=== PATIENT | female | born 1935 | race Asian ===

== ENCOUNTER 2017-02-12 17:26 | Inpatient (IN) | payer MEDICARE, OTHER ==
[~2017-02-12] VITALS: Ht 149.9 cm; Wt 64.8 kg
[~2017-02-12 17:26] MED LIST: ACET-2895 PO; ASPI-556 PO; BRIM155OS OU; CALC-1085 PO; METO-391 PO; MULT-950 PO; OMEP10 PO; SIMV40TA5 PO; TIOT185 IH
[2017-02-12] MEDS ORDERED: METF500T4 PO (17:30)
[2017-02-12] MEDS ORDERED: CLOP75 PO (17:30)
[2017-02-12 19:29] LABS: HEMATOCRIT 47.3 % (36-46); HEMOGLOBIN 15.7 g/dL (12.0-16.0); MEAN CORPUSCULAR HEMOGLOBIN 30.8 pg (26.0-34.0); MEAN CORPUSCULAR HGB CONC 33.3 G/dL (31.0-37.0); MEAN CORPUSCULAR VOLUME 92 fL (80-100); PLATELET COUNT (AUTO) 158 K/uL (150-450); RED BLOOD CELL COUNT(AUTO) 5.12 MIL/uL (4.00-5.20); RED CELL DISTRIBUTION WIDTH 15.7 % (11.5-14.5)
[2017-02-12 19:30] LABS: WHITE BLOOD COUNT (AUTO) 16.1 K/uL (4.5-11.0)
[2017-02-12 19:32] LABS: PROTHROMBIN TIME 10.7 SEC (9.4-11.6)
[2017-02-12 19:37] LABS: ALANINE AMINOTRANSFERASE 21 U/L (12-78); ALBUMIN 2.7 g/dL (3.4-5.0); ANION GAP 8 mmol/L (8-16); ASPARTATE AMINOTRANSFERASE 19 U/L (15-37); BILIRUBIN,TOTAL 0.3 mg/dL (0.1-1.0); CALCIUM, TOTAL 10.2 mg/dL (8.8-10.5); CARBON DIOXIDE 29 mmol/L (22-29); CHLORIDE 101 mmol/L (98-107); CREATINE KINASE, TOTAL 33 U/L (26-192); CREATININE 1.55 mg/dL (0.60-1.30); GLOMERULAR FILTR. RATE CALC 32 mL/min (>60); POTASSIUM 4.3 mmol/L (3.5-5.1); SODIUM SERUM 138 mmol/L (136-145); TOTAL PROTEIN, SERUM 7.3 g/dL (6.4-8.2); UREA NITROGEN, BLOOD 19 mg/dL (7-18)
[2017-02-12 19:38] LABS: AMMONIA 16 umol/L (11-32)
[2017-02-12 19:39] LABS: TROPONIN I < 0.02 ng/mL (0.00-0.05)
[2017-02-12 19:43] LABS: BAND NEUTROPHILS % (MANUAL) 12 % (1-5); EOSINOPHILS % (MANUAL) 4 % (1-6); LYMPHOCYTES % (MANUAL) 7 % (22-44); TOTAL CELLS COUNTED 100
[2017-02-12 19:44] LABS: RBC MORPHOLOGY COMMENT NORMAL RBC MORPH
[2017-02-12 19:50] LABS: APPEARANCE,URINE CLEAR (CLEAR); GLUCOSE, URINE (UA) NEGATIVE (NEGATIVE); KETONES,URINE 15 mg/dL (NEGATIVE); LEUKOCYTE ESTERASE ,URINE NEGATIVE (NEGATIVE); OCCULT BLOOD,URINE TRACE (NEGATIVE); PROTEIN,URINE SEE CONFIRM (NEGATIVE)
[2017-02-12 19:52] LABS: B-TYPE NATRIURETIC PEPTIDE 122 pg/mL (0-100)
[2017-02-12 19:52] LABS: ADD UA MICROSCOPIC YES
[2017-02-12] MEDS ORDERED: OMEP20 PO (19:57)
[2017-02-12] MEDS ORDERED: ACETAMINOPHEN 325 MG TABLET PO PRN (20:00)
[2017-02-12] MEDS ORDERED: 0.9% SODIUM CHLORIDE 10 ML SYRINGE IVP PRN (20:00)
[2017-02-12] MEDS ORDERED: SODIUM CHLORIDE 0.9% 1,000 ML IV ONE (20:00)
[2017-02-12] MEDS ORDERED: ASPIRIN 325 MG EC TABLET PO ONE (20:00)
[2017-02-12] MEDS ORDERED: ONDANSETRON HCL 4 MG/2 ML VIAL IVP PRN (20:00)
[2017-02-12 20:03] LABS: RBC,URINE 0-2 /HPF (0-2); SQUAMOUS EPITHELIAL CELL,UR Few /LPF (None Seen); SULFOSALICYLIC ACID,URINE 1+ (Negative); WBC,URINE 0-2 /HPF (0-5)
[2017-02-12] MEDS ORDERED: ZOLPIDEM TARTRATE 5 MG TABLET PO ONE (21:00)
[2017-02-12 21:30] VITALS: BP 130/72
[2017-02-12] MEDS ORDERED: PNEUMOCOCCAL VACCINE POLYVALENT 0.5 ML VIAL [PPSV23] IM ONE (23:15)
[2017-02-12 23:30] VITALS: BP 91/47
[2017-02-13] VITALS (7 sets, daily range): BP systolic 96–134; BP diastolic 50–70
[2017-02-13] MEDS ORDERED: GABA-529 PO (07:53)
[2017-02-13] MEDS ORDERED: DIVA125T PO ×2 (07:53)
[2017-02-13] MEDS ORDERED: DONE10TA8 PO (07:53)
[2017-02-13] MEDS ORDERED: MEMA10TA11 PO (07:53)
[2017-02-13] MEDS ORDERED: CALC-1038 PO (07:53)
[2017-02-13] MEDS ORDERED: ONDANSETRON HCL 4 MG/2 ML VIAL IVP PRN (08:45)
[2017-02-13] MEDS ORDERED: IPRATROPIUM BROMIDE 0.5 MG/2.5 ML NEB SOLUTION NEB PRN (08:45)
[2017-02-13] MEDS ORDERED: ALBUTEROL SULFATE 2.5 MG/0.5 ML NEB SOLUTION NEB PRN (08:45)
[2017-02-13] MEDS ORDERED: HYDROCODONE/ACETAMINOPHEN 5-325 MG TABLET PO PRN (08:45)
[2017-02-13] MEDS ORDERED: ZOLPIDEM TARTRATE 5 MG TABLET PO PRN (08:45)
[2017-02-13] MEDS ORDERED: ACETAMINOPHEN 325 MG TABLET PO PRN ×2 (08:45)
[2017-02-13] MEDS ORDERED: HEPARIN SODIUM,PORCINE 5,000 UNITS/ML VIAL SQ SCH (08:45)
[2017-02-13] MEDS ORDERED: 0.9% SODIUM CHLORIDE 10 ML SYRINGE IVP PRN (08:45)
[2017-02-13] MEDS ORDERED: CefTRIAXone 1 GM/DEXTROSE 50 ML IV SCH (09:00)
[2017-02-13] MEDS ORDERED: DEXTROSE 50%-WATER 25 GM/50 ML SYRINGE IVP PRN (09:00)
[2017-02-13] MEDS ORDERED: INSULIN ASPART 100 UNITS/ML SQ PRN (09:00)
[2017-02-13] MEDS ORDERED: SODIUM CHLORIDE 0.9% 100 ML ONE (09:48)
[2017-02-13] MEDS: DONEPEZIL HCL 10 MG TABLET PO SCH (10:02)
[2017-02-13] MEDS: METOPROLOL SUCCINATE 50 MG ER TABLET PO SCH (10:02)
[2017-02-13] MEDS: DOCUSATE SODIUM 250 MG CAPSULE PO SCH ×3 (10:02→20:53)
[2017-02-13] MEDS: CALCIUM OYSTER SHELL 500 MG TABLET PO SCH (10:03)
[2017-02-13] MEDS: MULTIVITAMINS, THERAPEUTIC TABLET PO SCH (10:03)
[2017-02-13] MEDS: DIVALPROEX SODIUM 125 MG DR TABLET PO SCH ×3 (10:03→20:52)
[2017-02-13] MEDS: PANTOPRAZOLE SODIUM 40 MG DR TABLET PO SCH (10:03)
[2017-02-13] MEDS: TIOTROPIUM BROMIDE 18 MCG/INH HANDIHALER [5] IH SCH (10:04)
[2017-02-13] MEDS: MetFORMIN HCL 500 MG TABLET PO SCH (18:09)
[2017-02-13] MEDS: HEPARIN SODIUM,PORCINE 5,000 UNITS/ML VIAL SQ SCH (20:53)
[2017-02-13] MEDS ORDERED: ATORVASTATIN CALCIUM 20 MG TABLET PO SCH (21:00)
[2017-02-13] MEDS ORDERED: DIVALPROEX SODIUM 125 MG DR TABLET PO SCH (21:00)
[2017-02-14 04:02] VITALS: BP 123/61
[2017-02-14] MEDS: PANTOPRAZOLE SODIUM 40 MG DR TABLET PO SCH (06:41)
[2017-02-14 07:03] LABS: BASOPHILS % (AUTO) 0.2 % (0.0-2.0); EOSINOPHILS % (AUTO) 8.4 % (1.0-6.0); HEMATOCRIT 41.9 % (36-46); LYMPHOCYTES # (AUTO) 1.9 K/uL (1.0-4.8); LYMPHOCYTES % (AUTO) 22.7 % (22.0-44.0); MEAN CORPUSCULAR HGB CONC 33.3 G/dL (31.0-37.0); MEAN CORPUSCULAR VOLUME 93 fL (80-100); MONOCYTES # (AUTO) 0.7 K/uL (0.1-1.0); MONOCYTES % (AUTO) 9.1 % (2.0-9.0); NEUTROPHILS # (AUTO) 4.9 K/uL (1.8-7.7); NEUTROPHILS % (AUTO) 59.6 % (40.0-70.0); PLATELET COUNT (AUTO) 181 K/uL (150-450); RED BLOOD CELL COUNT(AUTO) 4.51 MIL/uL (4.00-5.20); RED CELL DISTRIBUTION WIDTH 15.5 % (11.5-14.5); WHITE BLOOD COUNT (AUTO) 8.2 K/uL (4.5-11.0)
[2017-02-14 07:12] VITALS: BP 104/62
[2017-02-14 07:15] LABS: CALCIUM, TOTAL 9.4 mg/dL (8.8-10.5); CHOL/HDL RATIO 1.9 (3.9-5.7); CREATININE 1.28 mg/dL (0.60-1.30); MAGNESIUM 2.4 mg/dL (1.80-2.40); PHOSPHORUS 2.3 mg/dL (2.5-4.9); POTASSIUM 3.2 mmol/L (3.5-5.1); THYROID STIMULATING HORMONE 2.29 uIU/mL (0.36-3.74)
[2017-02-14 07:35] LABS: HEMOGLOBIN A1C 5.6 % (4.5-6.2)
[2017-02-14] MEDS ORDERED: CLOPIDOGREL BISULFATE 75 MG TABLET PO SCH (08:30)
[2017-02-14] MEDS ORDERED: MethylPREDNISolone SOD SUCC 125 MG/2 ML VIAL IVP ONE (08:45)
[2017-02-14] MEDS ORDERED: FEXOFENADINE HCL 60 MG TABLET PO SCH (09:00)
[2017-02-14] MEDS ORDERED: POTASSIUM CHLORIDE 20 MEQ ER TABLET PO ONE (09:00)
[2017-02-14] MEDS ORDERED: POTASSIUM PHOS/SODIUM PHOS MIXTURE 1 POWDER PACKET PO ONE (09:00)
[2017-02-14] MEDS ORDERED: SODIUM CHLORIDE 0.9% 100 ML ONE (09:08)
[2017-02-14] MEDS: POTASSIUM CHL 10 MEQ/WATER 50 ML IV SCH ×2 (09:10→12:11)
[2017-02-14] MEDS: DIVALPROEX SODIUM 125 MG DR TABLET PO SCH (09:10)
[2017-02-14] MEDS: MetFORMIN HCL 500 MG TABLET PO SCH (09:11)
[2017-02-14] MEDS: HEPARIN SODIUM,PORCINE 5,000 UNITS/ML VIAL SQ SCH (09:11)
[2017-02-14] MEDS: METOPROLOL SUCCINATE 50 MG ER TABLET PO SCH (09:11)
[2017-02-14] MEDS: MULTIVITAMINS, THERAPEUTIC TABLET PO SCH (09:11)
[2017-02-14] MEDS: DOCUSATE SODIUM 250 MG CAPSULE PO SCH (09:11)
[2017-02-14] MEDS: CALCIUM OYSTER SHELL 500 MG TABLET PO SCH (09:11)
[2017-02-14] MEDS: DONEPEZIL HCL 10 MG TABLET PO SCH (09:11)
[2017-02-14] MEDS: TIOTROPIUM BROMIDE 18 MCG/INH HANDIHALER [5] IH SCH (09:12)
[2017-02-14 11:45] VITALS: BP 134/64
[2017-02-14 12:13] LABS: GLUCOSE,POINT OF CARE 131 MG/DL (70-110)
[2017-02-14 12:13] LABS: GLUCOSE,POINT OF CARE 90 MG/DL (70-110)
[2017-02-14 12:13] LABS: GLUCOSE,POINT OF CARE 105 MG/DL (70-110)
[2017-02-14 13:31] LABS: PHOSPHORUS 2.4 mg/dL (2.5-4.9); POTASSIUM 4.9 mmol/L (3.5-5.1)
[2017-02-14] MEDS ORDERED: LEVOFLOXACIN 500 MG TABLET PO ONE (14:30)
[2017-02-14] MEDS ORDERED: LEVO250 PO (14:43)
[2017-02-14] MEDS ORDERED: ATOR20TA86 PO (14:43)
[2017-02-14] MEDS ORDERED: FEXO-58 PO (14:45)
[2017-02-14 15:18] VITALS: BP 122/62
[2017-02-14] MEDS ORDERED: DIVALPROEX SODIUM 125 MG DR TABLET PO SCH (16:00)
[2017-02-14 22:17] LABS: GLUCOSE,POINT OF CARE 86 MG/DL (70-110)
[2017-02-14 22:23] LABS: GLUCOSE COMMENT 1 Received Meds; GLUCOSE,POINT OF CARE 181 MG/DL (70-110)
[2017-02-14 22:23] LABS: GLUCOSE,POINT OF CARE 141 MG/DL (70-110)
== END 2017-02-14 15:30 | disposition home or self-care (01) | DRG 682 ==
LOC: EMS 17:27 → 5S 20:00
PROVIDERS: ADMIT Internal Medicine; ATTEND Internal Medicine
DX: N17.9 Acute kidney failure, unspecified (principal); J96.20 Acute and chronic respiratory failure, unspecified whether with hypoxia or hypercapnia; J84.9 Interstitial pulmonary disease, unspecified; I13.0 Hypertensive heart and chronic kidney disease with heart failure and stage 1 through stage 4 chronic kidney disease, or unspecified chronic kidney disease; J98.11 Atelectasis; G45.9 Transient cerebral ischemic attack, unspecified; R53.1 Weakness; E11.22 Type 2 diabetes mellitus with diabetic chronic kidney disease; I50.9 Heart failure, unspecified; F03.90 Unspecified dementia, unspecified severity, without behavioral disturbance, psychotic disturbance, mood disturbance, and anxiety; N18.3 Chronic kidney disease, stage 3 (moderate); D72.829 Elevated white blood cell count, unspecified; E78.5 Hyperlipidemia, unspecified; I25.10 Atherosclerotic heart disease of native coronary artery without angina pectoris; Z86.73 Personal history of transient ischemic attack (TIA), and cerebral infarction without residual deficits; J44.9 Chronic obstructive pulmonary disease, unspecified; K21.9 Gastro-esophageal reflux disease without esophagitis; M81.0 Age-related osteoporosis without current pathological fracture; Z79.84 Long term (current) use of oral hypoglycemic drugs; Z79.899 Other long term (current) drug therapy; Z87.891 Personal history of nicotine dependence; Z88.5 Allergy status to narcotic agent
CPT/HCPCS: 70450; 70544; 70551; 71250; 82948; 82962; 83036; 83735; 84100; 84132; 84145; 84443; 90471; 93005; 93306; 96360; 97162; 97165; 97530; 99285; J0696; J1644; J2930; J3480; J7030; J7050

== ENCOUNTER 2017-05-03 22:14 | Inpatient (IN) | payer MEDICARE, OTHER ==
[~2017-05-03] VITALS: Ht 160 cm; Wt 53.5 kg
[~2017-05-03 22:14] MED LIST changes: -ASPI-556 PO; +ATOR20TA86 PO; -BRIM155OS OU; +CALC-1038 PO; -CALC-1085 PO; +CLOP75 PO; +DIVA125T PO; +DONE10TA8 PO; +FEXO-58 PO; +LEVO250 PO; +MEMA10TA11 PO; +METF500T4 PO; -OMEP10 PO; -SIMV40TA5 PO
[2017-05-03] MEDS ORDERED: [UNRECOGNIZED DRUG - CODE] PO (22:28)
[2017-05-03] MEDS ORDERED: ROSU10 PO (22:28)
[2017-05-03] MEDS ORDERED: SENN8.6T90 PO (22:28)
[2017-05-03] MEDS ORDERED: METO-558 PO (22:28)
[2017-05-03] MEDS ORDERED: QUET25TA PO (22:28)
[2017-05-03 23:21] LABS: BASOPHILS % (AUTO) 0.9 % (0.0-2.0); EOSINOPHILS % (AUTO) 3.9 % (1.0-6.0); HEMOGLOBIN 14.9 g/dL (12.0-16.0); LYMPHOCYTES # (AUTO) 2.2 K/uL (1.0-4.8); LYMPHOCYTES % (AUTO) 24.8 % (22.0-44.0); MEAN CORPUSCULAR HEMOGLOBIN 30.8 pg (26.0-34.0); MEAN CORPUSCULAR HGB CONC 33.2 G/dL (31.0-37.0); MEAN CORPUSCULAR VOLUME 93 fL (80-100); MONOCYTES # (AUTO) 0.8 K/uL (0.1-1.0); MONOCYTES % (AUTO) 9.4 % (2.0-9.0); NEUTROPHILS # (AUTO) 5.5 K/uL (1.8-7.7); PLATELET COUNT (AUTO) 314 K/uL (150-450); RED BLOOD CELL COUNT(AUTO) 4.85 MIL/uL (4.00-5.20); RED CELL DISTRIBUTION WIDTH 14.3 % (11.5-14.5)
[2017-05-03 23:33] LABS: ANION GAP 8 mmol/L (8-16); CALCIUM, TOTAL 9.7 mg/dL (8.8-10.5); CARBON DIOXIDE 28 mmol/L (22-29); CHLORIDE 107 mmol/L (98-107); CREATININE 0.83 mg/dL (0.60-1.30); GLOMERULAR FILTR. RATE CALC > 60 mL/min (>60); GLUCOSE,RANDOM 105 mg/dL (70-110); POTASSIUM 4.3 mmol/L (3.5-5.1); SODIUM SERUM 143 mmol/L (136-145); UREA NITROGEN, BLOOD 19 mg/dL (7-18)
[2017-05-03 23:39] LABS: ALANINE AMINOTRANSFERASE 13 U/L (12-78); ALBUMIN 2.6 g/dL (3.4-5.0); ALKALINE PHOSPHATASE 83 U/L (46-116); ASPARTATE AMINOTRANSFERASE 16 U/L (15-37); BILIRUBIN,TOTAL 0.2 mg/dL (0.1-1.0); CREATINE KINASE, TOTAL 26 U/L (26-192); VALPROIC ACID 30 mcg/mL (50-100)
[2017-05-03 23:41] LABS: AMMONIA 26 umol/L (11-32)
[2017-05-03 23:44] LABS: TROPONIN I < 0.02 ng/mL (0.00-0.05)
[2017-05-03 23:56] LABS: INR 0.9 (0.9-1.1); PROTHROMBIN TIME 9.7 SEC (9.4-11.6)
[2017-05-04 04:52] LABS: B-TYPE NATRIURETIC PEPTIDE 31 pg/mL (0-100)
[2017-05-04] MEDS ORDERED: CefTRIAXone SODIUM 1 GM in DEXTROSE 5%-WATER 10 ML IV ONE (05:00)
[2017-05-04 05:41] LABS: APPEARANCE,URINE TURBID (CLEAR); BILIRUBIN,URINE NEGATIVE (NEGATIVE); GLUCOSE, URINE (UA) NEGATIVE (NEGATIVE); KETONES,URINE NEGATIVE (NEGATIVE); LEUKOCYTE ESTERASE ,URINE LARGE (NEGATIVE); NITRATE,URINE NEGATIVE (NEGATIVE); OCCULT BLOOD,URINE SMALL (NEGATIVE); PH,URINE 6.5 (5.0-8.0); PROTEIN,URINE NEGATIVE (NEGATIVE); UROBILINOGEN,URINE 0.2 mg/dL (<=1.0)
[2017-05-04 05:42] LABS: AMPHET/METH SCREEN,URINE NEGATIVE (NEGATIVE); BARBITURATE SCREEN, URINE NEGATIVE (NEGATIVE); BENZODIAZEPINES SCREEN,URINE POSITIVE (NEGATIVE); CANNABINOID SCREEN,URINE NEGATIVE (NEGATIVE); COCAINE SCREEN,URINE NEGATIVE (NEGATIVE); METHADONE SCREEN, URINE NEGATIVE (NEGATIVE); OPIATE SCREEN,URINE NEGATIVE (NEGATIVE)
[2017-05-04 05:46] LABS: PHENCYCLIDINE SCREEN,URINE NEGATIVE (NEGATIVE)
[2017-05-04 06:19] LABS: WBC,URINE 51-100 /HPF (0-5)
[2017-05-04 06:20] LABS: BACTERIA,URINE Many /HPF (None Seen); SQUAMOUS EPITHELIAL CELL,UR Few /LPF (None Seen)
[2017-05-04] MEDS ORDERED: ONDANSETRON HCL 4 MG/2 ML VIAL IVP PRN ×2 (07:15→12:00)
[2017-05-04] MEDS ORDERED: ACETAMINOPHEN 325 MG TABLET PO PRN ×2 (07:15→12:00)
[2017-05-04] MEDS ORDERED: 0.9% SODIUM CHLORIDE 10 ML SYRINGE IVP PRN ×2 (07:15→12:00)
[2017-05-04 08:38] VITALS: BP 123/66
[2017-05-04 11:17] LABS: INR 0.9 (0.9-1.1); PROTHROMBIN TIME 9.9 SEC (9.4-11.6)
[2017-05-04 11:30] LABS: ANION GAP 6 mmol/L (8-16); CALCIUM, TOTAL 9.7 mg/dL (8.8-10.5); CARBON DIOXIDE 30 mmol/L (22-29); CHLORIDE 107 mmol/L (98-107); CHOL/HDL RATIO 5.3 (3.9-5.7); CHOLESTEROL 251 mg/dL (131-200); CREATININE 0.83 mg/dL (0.60-1.30); GLOMERULAR FILTR. RATE CALC > 60 mL/min (>60); GLUCOSE,RANDOM 89 mg/dL (70-110); HDL CHOLESTEROL 47 mg/dL (40-60); LDL CHOL (CALC.) 165 mg/dL (0-130); POTASSIUM 4.2 mmol/L (3.5-5.1); SODIUM SERUM 143 mmol/L (136-145); THYROID STIMULATING HORMONE 2.38 uIU/mL (0.36-3.74); TRIGLYCERIDES 194 mg/dL (15-150); UREA NITROGEN, BLOOD 17 mg/dL (7-18)
[2017-05-04 11:39] LABS: HEMOGLOBIN A1C 5.6 % (4.5-6.2)
[2017-05-04 11:44] VITALS: BP 110/56
[2017-05-04] MEDS ORDERED: IPRATROPIUM BROMIDE 0.5 MG/2.5 ML NEB SOLUTION NEB PRN (12:00)
[2017-05-04] MEDS ORDERED: ALBUTEROL SULFATE 2.5 MG/0.5 ML NEB SOLUTION NEB PRN (12:00)
[2017-05-04] MEDS: HEPARIN SODIUM,PORCINE 5,000 UNITS/ML VIAL SQ SCH ×2 (13:30→20:22)
[2017-05-04] MEDS: TIOTROPIUM BROMIDE 18 MCG/INH HANDIHALER [5] IH SCH (13:30)
[2017-05-04 15:17] VITALS: BP 105/45
[2017-05-04] MEDS: DIVALPROEX SODIUM 125 MG DR TABLET PO SCH ×2 (16:19→20:22)
[2017-05-04] MEDS: DOCUSATE SODIUM 250 MG CAPSULE PO SCH ×2 (16:19→20:21)
[2017-05-04] MEDS: QUEtiapine FUMARATE 25 MG TABLET PO SCH ×2 (16:19→20:22)
[2017-05-04 19:27] VITALS: BP 132/77
[2017-05-04] MEDS: ROSUVASTATIN CALCIUM 10 MG TABLET PO SCH (20:22)
[2017-05-04] MEDS: CLOPIDOGREL BISULFATE 75 MG TABLET PO SCH (20:22)
[2017-05-05] VITALS: BP 120/68
[2017-05-05 04:00] VITALS: BP 116/56
[2017-05-05] MEDS: PANTOPRAZOLE SODIUM 40 MG DR TABLET PO SCH (05:31)
[2017-05-05] MEDS: CefTRIAXone SODIUM 1 GM in DEXTROSE 5%-WATER 10 ML IV SCH (05:31)
[2017-05-05] MEDS: DOCUSATE SODIUM 250 MG CAPSULE PO SCH ×3 (11:01→20:32)
[2017-05-05] MEDS: MULTIVITAMINS WITH MINERALS, THERAPEUTIC TABLET PO SCH (11:02)
[2017-05-05] MEDS: METOPROLOL SUCCINATE 50 MG ER TABLET PO SCH (11:02)
[2017-05-05] MEDS: CALCIUM CIT/VITAMIN D3 200 MG-250 UNITS TABLET PO SCH (11:03)
[2017-05-05] MEDS: QUEtiapine FUMARATE 25 MG TABLET PO SCH ×3 (11:03→20:32)
[2017-05-05] MEDS: SENNA 187 MG TABLET PO SCH (11:03)
[2017-05-05] MEDS: DIVALPROEX SODIUM 125 MG DR TABLET PO SCH ×3 (11:04→20:32)
[2017-05-05] MEDS: TIOTROPIUM BROMIDE 18 MCG/INH HANDIHALER [5] IH SCH (11:04)
[2017-05-05] MEDS: HEPARIN SODIUM,PORCINE 5,000 UNITS/ML VIAL SQ SCH ×2 (11:05→20:33)
[2017-05-05 11:58] LABS: BASOPHILS % (AUTO) 1.3 % (0.0-2.0); EOSINOPHILS % (AUTO) 6.5 % (1.0-6.0); HEMATOCRIT 42.2 % (36-46); HEMOGLOBIN 14.2 g/dL (12.0-16.0); LYMPHOCYTES # (AUTO) 1.6 K/uL (1.0-4.8); LYMPHOCYTES % (AUTO) 23.6 % (22.0-44.0); MEAN CORPUSCULAR HEMOGLOBIN 30.9 pg (26.0-34.0); MEAN CORPUSCULAR HGB CONC 33.5 G/dL (31.0-37.0); MEAN CORPUSCULAR VOLUME 92 fL (80-100); MONOCYTES # (AUTO) 0.7 K/uL (0.1-1.0); NEUTROPHILS # (AUTO) 3.9 K/uL (1.8-7.7); NEUTROPHILS % (AUTO) 58.6 % (40.0-70.0); PLATELET COUNT (AUTO) 312 K/uL (150-450); RED BLOOD CELL COUNT(AUTO) 4.58 MIL/uL (4.00-5.20); RED CELL DISTRIBUTION WIDTH 14.4 % (11.5-14.5)
[2017-05-05 18:03] VITALS: BP 123/54
[2017-05-05] MEDS: ROSUVASTATIN CALCIUM 10 MG TABLET PO SCH (20:32)
[2017-05-05] MEDS: CLOPIDOGREL BISULFATE 75 MG TABLET PO SCH (20:32)
[2017-05-05 20:48] VITALS: BP 113/53
[2017-05-06] VITALS (7 sets, daily range): BP systolic 97–132; BP diastolic 55–93
[2017-05-06] MEDS: CefTRIAXone SODIUM 1 GM in DEXTROSE 5%-WATER 10 ML IV SCH (05:37)
[2017-05-06] MEDS: PANTOPRAZOLE SODIUM 40 MG DR TABLET PO SCH (05:37)
[2017-05-06 07:42] LABS: ALBUMIN 2.5 g/dL (3.4-5.0); BILIRUBIN,TOTAL 0.2 mg/dL (0.1-1.0); CALCIUM, TOTAL 9.4 mg/dL (8.8-10.5); CREATININE 0.95 mg/dL (0.60-1.30); POTASSIUM 3.7 mmol/L (3.5-5.1); TOTAL PROTEIN, SERUM 6.9 g/dL (6.4-8.2)
[2017-05-06] MEDS: TIOTROPIUM BROMIDE 18 MCG/INH HANDIHALER [5] IH SCH (09:09)
[2017-05-06] MEDS: HEPARIN SODIUM,PORCINE 5,000 UNITS/ML VIAL SQ SCH ×2 (09:09→21:09)
[2017-05-06] MEDS: DOCUSATE SODIUM 250 MG CAPSULE PO SCH ×3 (09:10→21:07)
[2017-05-06] MEDS: MULTIVITAMINS WITH MINERALS, THERAPEUTIC TABLET PO SCH (09:10)
[2017-05-06] MEDS: DIVALPROEX SODIUM 125 MG DR TABLET PO SCH ×3 (09:10→21:08)
[2017-05-06] MEDS: SENNA 187 MG TABLET PO SCH (09:10)
[2017-05-06] MEDS: CALCIUM CIT/VITAMIN D3 200 MG-250 UNITS TABLET PO SCH (09:11)
[2017-05-06] MEDS: QUEtiapine FUMARATE 25 MG TABLET PO SCH ×3 (09:11→21:08)
[2017-05-06] MEDS: METOPROLOL SUCCINATE 50 MG ER TABLET PO SCH (09:13)
[2017-05-06] MEDS: ROSUVASTATIN CALCIUM 10 MG TABLET PO SCH (21:07)
[2017-05-06] MEDS: CLOPIDOGREL BISULFATE 75 MG TABLET PO SCH (21:08)
[2017-05-07 00:30] VITALS: BP 113/65
[2017-05-07 04:43] VITALS: BP 93/63
[2017-05-07] MEDS: CefTRIAXone SODIUM 1 GM in DEXTROSE 5%-WATER 10 ML IV SCH (05:41)
[2017-05-07] MEDS: PANTOPRAZOLE SODIUM 40 MG DR TABLET PO SCH (05:41)
[2017-05-07 06:22] VITALS: BP 101/56
[2017-05-07 07:03] LABS: ALANINE AMINOTRANSFERASE 9 U/L (12-78); ALBUMIN 2.5 g/dL (3.4-5.0); ALKALINE PHOSPHATASE 72 U/L (46-116); ANION GAP 7 mmol/L (8-16); ASPARTATE AMINOTRANSFERASE 16 U/L (15-37); BILIRUBIN,TOTAL 0.2 mg/dL (0.1-1.0); CALCIUM, TOTAL 9.3 mg/dL (8.8-10.5); CARBON DIOXIDE 28 mmol/L (22-29); CHLORIDE 106 mmol/L (98-107); CREATININE 0.85 mg/dL (0.60-1.30); GLOMERULAR FILTR. RATE CALC > 60 mL/min (>60); GLUCOSE,RANDOM 88 mg/dL (70-110); POTASSIUM 3.9 mmol/L (3.5-5.1); SODIUM SERUM 141 mmol/L (136-145); TOTAL PROTEIN, SERUM 6.7 g/dL (6.4-8.2); UREA NITROGEN, BLOOD 24 mg/dL (7-18)
[2017-05-07 07:45] VITALS: BP 125/56
[2017-05-07] MEDS: MULTIVITAMINS WITH MINERALS, THERAPEUTIC TABLET PO SCH (08:25)
[2017-05-07] MEDS: TIOTROPIUM BROMIDE 18 MCG/INH HANDIHALER [5] IH SCH (08:25)
[2017-05-07] MEDS: DOCUSATE SODIUM 250 MG CAPSULE PO SCH (08:25)
[2017-05-07] MEDS: SENNA 187 MG TABLET PO SCH (08:25)
[2017-05-07] MEDS: HEPARIN SODIUM,PORCINE 5,000 UNITS/ML VIAL SQ SCH (08:25)
[2017-05-07] MEDS: CALCIUM CIT/VITAMIN D3 200 MG-250 UNITS TABLET PO SCH (08:25)
[2017-05-07] MEDS: METOPROLOL SUCCINATE 50 MG ER TABLET PO SCH (08:26)
[2017-05-07] MEDS: QUEtiapine FUMARATE 25 MG TABLET PO SCH (08:26)
[2017-05-07] MEDS: DIVALPROEX SODIUM 125 MG DR TABLET PO SCH (08:28)
[2017-05-07] MEDS ORDERED: PANT40TA25 PO (09:21)
[2017-05-07] MEDS ORDERED: TIOT185 IH (09:21)
[2017-05-07] MEDS ORDERED: AMOX500T2 PO (09:23)
[2017-05-07 11:33] VITALS: BP 121/78
[2017-05-08] MEDS ORDERED: AMOXICILLIN TRIHYDRATE 500 MG CAPSULE PO SCH (09:00)
== END 2017-05-07 13:45 | disposition home or self-care (01) | DRG 689 ==
LOC: EMS 22:17 → 5S 05-04 04:41
PROVIDERS: ADMIT Internal Medicine; ATTEND Internal Medicine
DX: N39.0 Urinary tract infection, site not specified (principal); G92 Toxic encephalopathy; F03.91 Unspecified dementia, unspecified severity, with behavioral disturbance; E11.22 Type 2 diabetes mellitus with diabetic chronic kidney disease; J98.11 Atelectasis; G93.89 Other specified disorders of brain; J44.9 Chronic obstructive pulmonary disease, unspecified; N18.3 Chronic kidney disease, stage 3 (moderate); F17.200 Nicotine dependence, unspecified, uncomplicated; I12.9 Hypertensive chronic kidney disease with stage 1 through stage 4 chronic kidney disease, or unspecified chronic kidney disease; T43.595A Adverse effect of other antipsychotics and neuroleptics, initial encounter; K21.9 Gastro-esophageal reflux disease without esophagitis; E78.5 Hyperlipidemia, unspecified; B95.1 Streptococcus, group B, as the cause of diseases classified elsewhere; I70.0 Atherosclerosis of aorta; F41.9 Anxiety disorder, unspecified; E78.00 Pure hypercholesterolemia, unspecified; Z86.73 Personal history of transient ischemic attack (TIA), and cerebral infarction without residual deficits; Z88.4 Allergy status to anesthetic agent; Y92.89 Other specified places as the place of occurrence of the external cause; Z79.899 Other long term (current) drug therapy
CPT/HCPCS: 51702; 70450; 83036; 84145; 84443; 87086; 87147; 93005; 97162; 97165; 97530; J0696; J1644; J7060

== ENCOUNTER 2018-05-24 13:01 | Emergency (ER) | payer MEDICARE, OTHER ==
[~2018-05-24] VITALS: Ht 160 cm; Wt 59.1 kg
[~2018-05-24 13:01] MED LIST changes: -ACET-2895 PO; -ATOR20TA86 PO; -CALC-1038 PO; +CHOL50004 PO; -CLOP75 PO; +CLOP75TA3 PO; -DIVA125T PO; -DONE10TA8 PO; -FEXO-58 PO; +FLUPH2.5I IM; -LEVO250 PO; -METF500T4 PO; -METO-391 PO; +METO25XL PO; +MULT-1203 PO; -MULT-950 PO; +OLAN2.5T3 PO; +PANT40TA25 PO; +ROSU10TA22 PO; +SENN8.6T90 PO; -TIOT185 IH; +[UNRECOGNIZED DRUG - CODE] PO
[2018-05-24 15:03] VITALS: BP 154/71
== END 2018-05-24 15:34 | disposition home or self-care (01) ==
LOC: EMS 13:02
DX: T17.928A Food in respiratory tract, part unspecified causing other injury, initial encounter (principal); E11.9 Type 2 diabetes mellitus without complications; I10 Essential (primary) hypertension; E78.00 Pure hypercholesterolemia, unspecified; Z88.5 Allergy status to narcotic agent; Y92.89 Other specified places as the place of occurrence of the external cause

== ENCOUNTER 2021-07-03 07:39 | Inpatient (IN) | payer MEDICARE, OTHER ==
[2021-07-03] VITALS (23 sets, daily range): BP systolic 93–170; BP diastolic 37–97
[~2021-07-03] VITALS: Ht 162.6 cm; Wt 58.6 kg
[~2021-07-03 07:39] MED LIST changes: +CHOL500013 PO; -CHOL50004 PO; -CLOP75TA3 PO; +CLOP75TA60 PO; +PANT-31 PO; -PANT40TA25 PO; -ROSU10TA22 PO; +ROSU10TA72 PO
[2021-07-03] MEDS ORDERED: 0.9% SODIUM CHLORIDE 10 ML SYRINGE IVP PRN ×2 (07:45→11:00)
[2021-07-03] MEDS ORDERED: SODIUM CHLORIDE 0.9% 1,650 ML IV ONE (08:00)
[2021-07-03] MEDS: NOREPINEPHRINE 4 MG/D5%-WATER 250 ML IV PRN ×3 (08:00→17:11)
[2021-07-03 08:42] LABS: INR 1.1 (0.9-1.1); PROTHROMBIN TIME 11.8 SEC (9.4-11.6)
[2021-07-03 08:52] LABS: ANION GAP 26 mmol/L (8-16); CALCIUM, TOTAL 9.1 mg/dL (8.8-10.5); CARBON DIOXIDE 12 mmol/L (22-29); CHLORIDE 104 mmol/L (98-107); CREATININE 2.19 mg/dL (0.60-1.30); GLOMERULAR FILTR. RATE CALC 21 mL/min (>60); GLUCOSE,RANDOM 332 mg/dL (70-110); POTASSIUM 5.7 mmol/L (3.5-5.1); SODIUM SERUM 142 mmol/L (136-145); UREA NITROGEN, BLOOD 87 mg/dL (7-18)
[2021-07-03 08:52] LABS: APPEARANCE,URINE HAZY (CLEAR); BILIRUBIN,URINE NEGATIVE (NEGATIVE); GLUCOSE, URINE (UA) NEGATIVE (NEGATIVE); KETONES,URINE TRACE mg/dL (NEGATIVE); LEUKOCYTE ESTERASE ,URINE NEGATIVE (NEGATIVE); NITRATE,URINE NEGATIVE (NEGATIVE); OCCULT BLOOD,URINE NEGATIVE (NEGATIVE); PROTEIN,URINE TRACE mg/dL (NEGATIVE); SPECIFIC GRAVITIY, URINE 1.017 (1.003-1.030); UROBILINOGEN,URINE <=1.0 mg/dL (<=1.0)
[2021-07-03 08:53] LABS: B-TYPE NATRIURETIC PEPTIDE 33 pg/mL (0-100)
[2021-07-03 09:05] LABS: LACTIC ACID 16.5 mmol/L (0.4-2.0)
[2021-07-03 09:06] LABS: MEAN CORPUSCULAR HEMOGLOBIN 29.5 pg (26.0-34.0); MEAN CORPUSCULAR HGB CONC 28.8 G/dL (31.0-37.0); MEAN CORPUSCULAR VOLUME 103 fL (80-100); RED BLOOD CELL COUNT(AUTO) 1.75 MIL/uL (4.00-5.20); RED CELL DISTRIBUTION WIDTH 14.8 % (11.5-14.5)
[2021-07-03 09:09] LABS: HEMOGLOBIN 5.2 g/dL (12.0-16.0)
[2021-07-03 09:11] LABS: HEMATOCRIT 17.9 % (36-46)
[2021-07-03 09:15] LABS: ALANINE AMINOTRANSFERASE 63 U/L (12-78); ALBUMIN 1.7 g/dL (3.4-5.0); ALKALINE PHOSPHATASE 210 U/L (46-116); ASPARTATE AMINOTRANSFERASE 710 U/L (15-37); BILIRUBIN,TOTAL 0.2 mg/dL (0.1-1.0); CREATINE KINASE, TOTAL ONLY 597 U/L (26-192); TOTAL PROTEIN, SERUM 5.2 g/dL (6.4-8.2)
[2021-07-03 09:26] LABS: PLATELET COUNT (AUTO) 3 K/uL (150-450)
[2021-07-03 09:47] LABS: COVID AG,FIA SOURCE NASAL SWAB
[2021-07-03 10:10] LABS: SEGMENTED NEUTROPHILS % 62 % (40-70)
[2021-07-03 10:11] LABS: BAND NEUTROPHILS % (MANUAL) 4 % (0-5); BASOPHILS % (MANUAL) 1 % (0-2); EOSINOPHILS % (MANUAL) 1 % (1-6); LYMPHOCYTES % (MANUAL) 22 % (22-44); METAMYELOCYTES % 2 % (0-0); MONOCYTES % (MANUAL) 7 % (2-9); MYELOCYTES % 1 % (0-0)
[2021-07-03 10:12] LABS: PLATELET MORPHOLOGY COMMENT LARGE PLTS PRESENT; WBC MORPHOLOGY TOXIC GRANULATION
[2021-07-03] MEDS ORDERED: AZITHROMYCIN 500 MG/NS 250 ML IV ONE (10:15)
[2021-07-03] MEDS ORDERED: CefTRIAXone 1 GM/DEXTROSE 50 ML IV ONE (10:15)
[2021-07-03] MEDS ORDERED: PANTOPRAZOLE SODIUM 40 MG/VIAL IVP ONE (10:15)
[2021-07-03 10:18] LABS: INFLUENZA TYPE A NEGATIVE FOR TYPE A (NEGATIVE); INFLUENZA TYPE B NEGATIVE FOR TYPE B (NEGATIVE)
[2021-07-03] MEDS ORDERED: PANTOPRAZOLE SODIUM 80 MG in SODIUM CHLORIDE 0.9% 100 ML IV SCH (10:30)
[2021-07-03] MEDS ORDERED: PHENYLEPHRINE 200 MG/D5%-WATER 250 ML IV PRN (11:45)
[2021-07-03] MEDS ORDERED: SODIUM CHLORIDE 0.9% 500 ML IV ONE ×2 (11:55→12:56)
[2021-07-03 13:13] LABS: ABG BASE EXCESS -15.7 mmol/L (-2.0-3.0); ABG CARBOXYHEMOGLOBIN 1.1 % (0.0-1.5); ABG HCO3 12.7 mmol/L (22.0-26.0); ABG METHEMOGLOBIN 0.3 % (0.0-1.5); ABG OXYGEN CONTENT 7.1 mL/dL (15.0-23.0); ABG OXYHEMOGLOBIN 97.6 % (94.0-100.0); PO2, ARTERIAL BG 143.7 mmHg (71.0-79.0); SOURCE, BLOOD GAS ARTERIAL
[2021-07-03 13:14] LABS: HEMATOCRIT 17.5 % (36-46)
[2021-07-03 13:15] LABS: ABG PCO2 17 mmHg (35-45); ABG TOTAL HEMOGLOBIN 4.9 G/dL (12.0-18.0); O2 DEVICE,BLOOD GAS CANNULA (ROOM AIR); SITE, BLOOD GAS LFT BRACHIAL
[2021-07-03 13:25] LABS: MEAN CORPUSCULAR HEMOGLOBIN 29.3 pg (26.0-34.0); MEAN CORPUSCULAR HGB CONC 28.5 G/dL (31.0-37.0); MEAN CORPUSCULAR VOLUME 103 fL (80-100); RED BLOOD CELL COUNT(AUTO) 1.73 MIL/uL (4.00-5.20); RED CELL DISTRIBUTION WIDTH 14.6 % (11.5-14.5)
[2021-07-03 13:26] LABS: PLATELET COUNT (AUTO) 44 K/uL (150-450)
[2021-07-03] MEDS ORDERED: FUROSEMIDE 20 MG/2 ML VIAL IVP ONE ×2 (13:45→16:00)
[2021-07-03] MEDS ORDERED: OCTREOTIDE ACETATE 100 MCG/ML VIAL IVP ONE (14:00)
[2021-07-03] MEDS ORDERED: ZOLPIDEM TARTRATE 5 MG TABLET PO PRN (14:15)
[2021-07-03] MEDS ORDERED: ONDANSETRON HCL 4 MG/2 ML VIAL IVP PRN (14:15)
[2021-07-03] MEDS ORDERED: BISACODYL 10 MG RECTAL RECTAL SUPPOSITORY PR PRN (14:15)
[2021-07-03] MEDS ORDERED: OCTREOTIDE ACETATE 500 MCG in DEXTROSE 5%-WATER 97.5 ML IV SCH (14:15)
[2021-07-03] MEDS ORDERED: MAGNESIUM HYDROXIDE SUSPENSION 30 ML UDCUP PO PRN (14:15)
[2021-07-03] MEDS ORDERED: ACETAMINOPHEN 325 MG TABLET PO PRN (14:15)
[2021-07-03] MEDS: OCTREOTIDE ACETATE 500 MCG in DEXTROSE 5%-WATER 97.5 ML IV SCH ×2 (14:47→23:26)
[2021-07-03 19:08] LABS: HEMATOCRIT 37.4 % (36-46); HEMOGLOBIN 12.4 g/dL (12.0-16.0)
[2021-07-03] MEDS ORDERED: NOREPINEPHRINE 4 MG/D5%-WATER 250 ML IV PRN (20:45)
[2021-07-03] MEDS: DOCUSATE SODIUM 100 MG CAPSULE PO SCH (20:59)
[2021-07-03] MEDS: PANTOPRAZOLE SODIUM 80 MG in SODIUM CHLORIDE 0.9% 100 ML IV SCH (21:10)
[2021-07-03 21:31] LABS: GLUCOSE,POINT OF CARE 154 MG/DL (70-110)
[2021-07-03] MEDS ORDERED: NOREPINEPHRINE BITARTRATE 8 MG in DEXTROSE 5%-WATER 242 ML IV PRN (21:45)
[2021-07-04] VITALS: BP 121/67
[2021-07-04 00:59] LABS: HEMATOCRIT 33.6 % (36-46); HEMOGLOBIN 11.5 g/dL (12.0-16.0)
[2021-07-04] MEDS ORDERED: LIDOCAINE/PF 2% 5 ML SYRINGE IVP ONE (01:00)
[2021-07-04] MEDS ORDERED: PROPOFOL 1% 20 ML VIAL IVP ONE (01:00)
[2021-07-04 04:00] VITALS: BP 107/46
[2021-07-04 04:00] LABS: GLUCOSE,POINT OF CARE 201 MG/DL (70-110)
[2021-07-04 06:09] LABS: HEMATOCRIT 33.8 % (36-46); HEMOGLOBIN 11.6 g/dL (12.0-16.0); MEAN CORPUSCULAR HEMOGLOBIN 30.1 pg (26.0-34.0); MEAN CORPUSCULAR HGB CONC 34.2 G/dL (31.0-37.0); MEAN CORPUSCULAR VOLUME 88 fL (80-100); PLATELET COUNT (AUTO) 25 K/uL (150-450); RED BLOOD CELL COUNT(AUTO) 3.84 MIL/uL (4.00-5.20); RED CELL DISTRIBUTION WIDTH 14.5 % (11.5-14.5)
[2021-07-04 06:10] LABS: CALCIUM, TOTAL 8.7 mg/dL (8.8-10.5); CREATININE 1.24 mg/dL (0.60-1.30); POTASSIUM 4.1 mmol/L (3.5-5.1)
[2021-07-04 06:17] LABS: HEMOGLOBIN A1C 5.5 % (3.8-5.6)
[2021-07-04] MEDS: PANTOPRAZOLE SODIUM 80 MG in SODIUM CHLORIDE 0.9% 100 ML IV SCH ×2 (07:25→16:52)
[2021-07-04] MEDS: DOCUSATE SODIUM 100 MG CAPSULE PO SCH ×2 (07:57→21:00)
[2021-07-04 08:00] VITALS: BP 151/88
[2021-07-04] MEDS ORDERED: PANTOPRAZOLE SODIUM 40 MG DR TABLET PO SCH (09:00)
[2021-07-04] MEDS: OCTREOTIDE ACETATE 500 MCG in DEXTROSE 5%-WATER 97.5 ML IV SCH (09:35)
[2021-07-04 10:16] LABS: BAND NEUTROPHILS % (MANUAL) 31 % (0-5); LYMPHOCYTES % (MANUAL) 12 % (22-44); MONOCYTES % (MANUAL) 5 % (2-9); SEGMENTED NEUTROPHILS % 52 % (40-70)
[2021-07-04 12:00] VITALS: BP 105/78
[2021-07-04 12:44] LABS: HEMATOCRIT 32.6 % (36-46); HEMOGLOBIN 11.1 g/dL (12.0-16.0)
[2021-07-04 13:48] LABS: PATHOLOGY REVIEW, DIFF YES
[2021-07-04] MEDS ORDERED: RINGERS SOLUTION,LACTATED 500 ML IV ONE (14:15)
[2021-07-04 16:00] VITALS: BP 107/60
[2021-07-04] MEDS: ALBUMIN HUMAN 25%-25GM/100ML 100 ML IV SCH (16:52)
[2021-07-04 19:10] LABS: HEMATOCRIT 28.7 % (36-46); HEMOGLOBIN 9.8 g/dL (12.0-16.0)
[2021-07-04 20:00] VITALS: BP 105/60
[2021-07-04 20:06] LABS: GLUCOSE,POINT OF CARE 216 MG/DL (70-110)
[2021-07-05] VITALS: BP 125/75
[2021-07-05] MEDS: ALBUMIN HUMAN 25%-25GM/100ML 100 ML IV SCH ×4 (00:23→23:14)
[2021-07-05 01:32] LABS: HEMATOCRIT 27.3 % (36-46); HEMOGLOBIN 9.1 g/dL (12.0-16.0)
[2021-07-05] MEDS: PANTOPRAZOLE SODIUM 80 MG in SODIUM CHLORIDE 0.9% 100 ML IV SCH ×3 (03:13→22:01)
[2021-07-05 04:00] VITALS: BP 119/64
[2021-07-05 05:49] LABS: EOSINOPHILS % (AUTO) 0 % (1.0-6.0); HEMATOCRIT 27.2 % (36-46); HEMOGLOBIN 9.1 g/dL (12.0-16.0); LYMPHOCYTES # (AUTO) 1.3 K/uL (1.0-4.8); LYMPHOCYTES % (AUTO) 8.4 % (22.0-44.0); MEAN CORPUSCULAR HEMOGLOBIN 30.1 pg (26.0-34.0); MEAN CORPUSCULAR HGB CONC 33.5 G/dL (31.0-37.0); MEAN CORPUSCULAR VOLUME 90 fL (80-100); MONOCYTES # (AUTO) 0.8 K/uL (0.1-1.0); NEUTROPHILS # (AUTO) 13.5 K/uL (1.8-7.7); PLATELET COUNT (AUTO) 25 K/uL (150-450); RED BLOOD CELL COUNT(AUTO) 3.02 MIL/uL (4.00-5.20); RED CELL DISTRIBUTION WIDTH 14.9 % (11.5-14.5)
[2021-07-05 05:57] LABS: NEUTROPHILS % (AUTO) 86.6 % (40.0-70.0)
[2021-07-05 06:00] LABS: ANION GAP 6 mmol/L (8-16); CALCIUM, TOTAL 9.1 mg/dL (8.8-10.5); CARBON DIOXIDE 32 mmol/L (22-29); CHLORIDE 111 mmol/L (98-107); CREATININE 0.77 mg/dL (0.60-1.30); GLUCOSE,RANDOM 117 mg/dL (70-110); PHOSPHORUS 1.7 mg/dL (2.5-4.9); POTASSIUM 3.6 mmol/L (3.5-5.1); SODIUM SERUM 149 mmol/L (136-145); UREA NITROGEN, BLOOD 23 mg/dL (7-18)
[2021-07-05 06:02] LABS: GLOMERULAR FILTR. RATE CALC > 60 mL/min (>60)
[2021-07-05 08:00] VITALS: BP 121/63
[2021-07-05] MEDS ORDERED: POTASSIUM PHOS,M-BASIC-D-BASIC 20 MEQ in DEXTROSE 5%-WATER 100 ML IV ONE (08:15)
[2021-07-05] MEDS ORDERED: SODIUM CHLORIDE 0.9% 250 ML IV ONE (09:04)
[2021-07-05 11:17] LABS: HEMATOCRIT 24.7 % (36-46); HEMOGLOBIN 8.4 g/dL (12.0-16.0)
[2021-07-05 12:00] VITALS: BP 105/68
[2021-07-05 16:00] VITALS: BP 120/61
[2021-07-05] MEDS: DEXTROSE 5%-WATER 1,000 ML IV SCH (16:13)
[2021-07-05 17:05] LABS: HEMATOCRIT 26.5 % (36-46)
[2021-07-05] MEDS: ACETAMINOPHEN 325 MG/ISO-OSM 32.5 ML IV PRN (17:51)
[2021-07-05 20:00] VITALS: BP 103/57
[2021-07-05 23:24] LABS: HEMATOCRIT 26.6 % (36-46); HEMOGLOBIN 8.8 g/dL (12.0-16.0)
[2021-07-06] VITALS: BP 129/59
[2021-07-06 04:00] VITALS: BP 109/79
[2021-07-06] MEDS: ACETAMINOPHEN 325 MG/ISO-OSM 32.5 ML IV PRN ×2 (04:35→15:12)
[2021-07-06] MEDS ORDERED: SODIUM CHLORIDE 0.9% 250 ML IV ONE (05:00)
[2021-07-06 05:35] LABS: BASOPHILS % (AUTO) 0.1 % (0.0-2.0); EOSINOPHILS % (AUTO) 0.1 % (1.0-6.0); HEMATOCRIT 25.1 % (36-46); HEMOGLOBIN 8.3 g/dL (12.0-16.0); MEAN CORPUSCULAR HEMOGLOBIN 30.1 pg (26.0-34.0); MEAN CORPUSCULAR HGB CONC 33.1 G/dL (31.0-37.0); MEAN CORPUSCULAR VOLUME 91 fL (80-100); MONOCYTES # (AUTO) 0.9 K/uL (0.1-1.0); MONOCYTES % (AUTO) 6.3 % (2.0-9.0); NEUTROPHILS # (AUTO) 12.4 K/uL (1.8-7.7); PLATELET COUNT (AUTO) 48 K/uL (150-450); RED BLOOD CELL COUNT(AUTO) 2.76 MIL/uL (4.00-5.20); RED CELL DISTRIBUTION WIDTH 15.1 % (11.5-14.5)
[2021-07-06 05:52] LABS: ANION GAP 5 mmol/L (8-16); CALCIUM, TOTAL 8.8 mg/dL (8.8-10.5); CARBON DIOXIDE 30 mmol/L (22-29); CHLORIDE 109 mmol/L (98-107); CREATININE 0.65 mg/dL (0.60-1.30); GLOMERULAR FILTR. RATE CALC > 60 mL/min (>60); GLUCOSE,RANDOM 105 mg/dL (70-110); POTASSIUM 3.3 mmol/L (3.5-5.1); SODIUM SERUM 144 mmol/L (136-145); UREA NITROGEN, BLOOD 17 mg/dL (7-18)
[2021-07-06 06:12] LABS: NEUTROPHILS % (AUTO) 86.5 % (40.0-70.0)
[2021-07-06] MEDS ORDERED: POTASSIUM PHOS,M-BASIC-D-BASIC 20 MEQ in DEXTROSE 5%-WATER 100 ML IV ONE (08:15)
[2021-07-06] MEDS: PIPERACILLIN/TAZO 3.375 GM/D5W 50 ML IV SCH ×3 (08:45→19:58)
[2021-07-06] MEDS: ALBUMIN HUMAN 25%-25GM/100ML 100 ML IV SCH ×3 (08:46→23:55)
[2021-07-06] MEDS: VANCOMYCIN HCL 500 MG in DEXTROSE 5%-WATER 100 ML IV SCH ×2 (09:12→20:59)
[2021-07-06] MEDS: PANTOPRAZOLE SODIUM 80 MG in SODIUM CHLORIDE 0.9% 100 ML IV SCH ×2 (09:13→20:03)
[2021-07-06] MEDS: DEXTROSE 5%-WATER 1,000 ML IV SCH (11:00)
[2021-07-06 12:38] LABS: HEMATOCRIT 24.4 % (36-46); HEMOGLOBIN 8.2 g/dL (12.0-16.0)
[2021-07-06 17:15] LABS: HEMATOCRIT 23.1 % (36-46); HEMOGLOBIN 7.6 g/dL (12.0-16.0)
[2021-07-06 20:00] VITALS: BP 97/48
[2021-07-06 23:34] LABS: HEMATOCRIT 23.5 % (36-46); HEMOGLOBIN 7.8 g/dL (12.0-16.0)
[2021-07-07] VITALS: BP 96/45
[2021-07-07] MEDS: PIPERACILLIN/TAZO 3.375 GM/D5W 50 ML IV SCH ×4 (00:05→18:02)
[2021-07-07 02:23] LABS: APPEARANCE,URINE HAZY (CLEAR); BILIRUBIN,URINE NEGATIVE (NEGATIVE); GLUCOSE, URINE (UA) NEGATIVE (NEGATIVE); KETONES,URINE NEGATIVE (NEGATIVE); LEUKOCYTE ESTERASE ,URINE NEGATIVE (NEGATIVE); NITRATE,URINE NEGATIVE (NEGATIVE); OCCULT BLOOD,URINE SMALL (NEGATIVE); PH,URINE 5.5 (5.0-8.0); PROTEIN,URINE 30-70 mg/dL (NEGATIVE); SPECIFIC GRAVITIY, URINE 1.026 (1.003-1.030); UROBILINOGEN,URINE <=1.0 mg/dL (<=1.0)
[2021-07-07 02:32] LABS: BACTERIA,URINE None Seen /HPF (None Seen); WBC,URINE 0-2 /HPF (0-5)
[2021-07-07 04:00] VITALS: BP 111/88
[2021-07-07] MEDS: PANTOPRAZOLE SODIUM 80 MG in SODIUM CHLORIDE 0.9% 100 ML IV SCH (05:26)
[2021-07-07 05:42] LABS: HEMATOCRIT 22.7 % (36-46); HEMOGLOBIN 7.7 g/dL (12.0-16.0)
[2021-07-07 05:54] LABS: ANION GAP 7 mmol/L (8-16); CALCIUM, TOTAL 8.5 mg/dL (8.8-10.5); CARBON DIOXIDE 30 mmol/L (22-29); CHLORIDE 103 mmol/L (98-107); CREATININE 0.81 mg/dL (0.60-1.30); GLUCOSE,RANDOM 113 mg/dL (70-110); PHOSPHORUS 2.3 mg/dL (2.5-4.9); SODIUM SERUM 140 mmol/L (136-145); UREA NITROGEN, BLOOD 12 mg/dL (7-18)
[2021-07-07 05:55] LABS: GLOMERULAR FILTR. RATE CALC > 60 mL/min (>60)
[2021-07-07] MEDS: DEXTROSE 5%-WATER 1,000 ML IV SCH (06:49)
[2021-07-07] MEDS: VANCOMYCIN HCL 500 MG in DEXTROSE 5%-WATER 100 ML IV SCH ×2 (07:48→20:12)
[2021-07-07] MEDS: ALBUMIN HUMAN 25%-25GM/100ML 100 ML IV SCH ×2 (07:49→15:56)
[2021-07-07 08:00] VITALS: BP 94/50
[2021-07-07] MEDS ORDERED: POTASSIUM PHOS,M-BASIC-D-BASIC 20 MEQ in DEXTROSE 5%-WATER 100 ML IV ONE (09:45)
[2021-07-07] MEDS: POTASSIUM CHL 10 MEQ/WATER 50 ML IV SCH ×2 (09:58→11:56)
[2021-07-07] MEDS ORDERED: POTASSIUM CHLORIDE 20 MEQ ER TABLET PO PRN (10:15)
[2021-07-07] MEDS ORDERED: MORPHINE SULFATE 2 MG/ML SYRINGE IVP PRN (10:15)
[2021-07-07] MEDS ORDERED: *CLINICAL-PERIPHERAL PARENTERAL NUTRITION DOSING CLINICAL ONE (10:15)
[2021-07-07] MEDS ORDERED: DEXTROSE 50%-WATER 25 GM/50 ML SYRINGE IVP PRN (10:45)
[2021-07-07 12:00] VITALS: BP 114/74
[2021-07-07 17:55] VITALS: BP 103/45
[2021-07-07] MEDS: POTASSIUM CHL 10 MEQ/WATER 50 ML IV PRN ×3 (19:29→22:52)
[2021-07-07 19:37] VITALS: BP 119/68
[2021-07-07] MEDS: PANTOPRAZOLE SODIUM 40 MG/VIAL IVP SCH (20:14)
[2021-07-07] MEDS ORDERED: SODIUM PHOS M BASIC D BASIC IV SCH ×10 (22:00)
[2021-07-07] MEDS ORDERED: [UNRECOGNIZED DRUG - OTHER] IV SCH ×10 (22:00)
[2021-07-07] MEDS ORDERED: PPN IV SCH ×10 (22:00)
[2021-07-07] MEDS ORDERED: SODIUM CHLORIDE IV SCH ×10 (22:00)
[2021-07-07] MEDS ORDERED: SODIUM CHLORIDE 0.9% 250 ML IV ONE (23:05)
[2021-07-08] MEDS: ALBUMIN HUMAN 25%-25GM/100ML 100 ML IV SCH ×3 (00:33→15:07)
[2021-07-08] MEDS: PIPERACILLIN/TAZO 3.375 GM/D5W 50 ML IV SCH ×4 (01:48→18:40)
[2021-07-08 04:15] VITALS: BP 104/51
[2021-07-08 07:21] LABS: GLUCOMETER DEV NAME(LOC) 6N.1; GLUCOSE,POINT OF CARE 103 MG/DL (70-110)
[2021-07-08 07:40] LABS: ANION GAP 5 mmol/L (8-16); CARBON DIOXIDE 28 mmol/L (22-29); CHLORIDE 103 mmol/L (98-107); CREATININE 0.78 mg/dL (0.60-1.30); GLUCOSE,RANDOM 97 mg/dL (70-110); PHOSPHORUS 2.3 mg/dL (2.5-4.9); POTASSIUM 3.3 mmol/L (3.5-5.1); SODIUM SERUM 136 mmol/L (136-145); UREA NITROGEN, BLOOD 12 mg/dL (7-18); VANCOMYCIN,RANDOM 13.1 mcg/mL (25.0-50.0)
[2021-07-08 07:44] LABS: GLOMERULAR FILTR. RATE CALC > 60 mL/min (>60)
[2021-07-08 07:47] VITALS: BP 127/69
[2021-07-08] MEDS: VANCOMYCIN HCL 500 MG in DEXTROSE 5%-WATER 100 ML IV SCH (07:53)
[2021-07-08] MEDS: POTASSIUM CHL 10 MEQ/WATER 50 ML IV PRN ×3 (07:54→10:29)
[2021-07-08] MEDS ORDERED: SODIUM CHLORIDE 0.9% 250 ML IV ONE (07:57)
[2021-07-08] MEDS: PANTOPRAZOLE SODIUM 40 MG/VIAL IVP SCH ×2 (09:11→20:52)
[2021-07-08 09:15] LABS: BASOPHILS % (AUTO) 0.1 % (0.0-2.0); EOSINOPHILS % (AUTO) 1.2 % (1.0-6.0); HEMATOCRIT 23.1 % (36-46); HEMOGLOBIN 7.8 g/dL (12.0-16.0); LYMPHOCYTES # (AUTO) 1.3 K/uL (1.0-4.8); MEAN CORPUSCULAR HEMOGLOBIN 30.8 pg (26.0-34.0); MEAN CORPUSCULAR HGB CONC 33.7 G/dL (31.0-37.0); MEAN CORPUSCULAR VOLUME 92 fL (80-100); MONOCYTES # (AUTO) 0.9 K/uL (0.1-1.0); NEUTROPHILS # (AUTO) 7.8 K/uL (1.8-7.7); NEUTROPHILS % (AUTO) 76.7 % (40.0-70.0); PLATELET COUNT (AUTO) 139 K/uL (150-450); RED BLOOD CELL COUNT(AUTO) 2.52 MIL/uL (4.00-5.20); RED CELL DISTRIBUTION WIDTH 14.5 % (11.5-14.5)
[2021-07-08 12:16] LABS: GLUCOMETER DEV NAME(LOC) 6N.1; GLUCOSE,POINT OF CARE 100 MG/DL (70-110)
[2021-07-08] MEDS ORDERED: SODIUM PHOS,M-BASIC-D-BASIC 20 MMOL in DEXTROSE 5%-WATER 150 ML IV ONE (14:00)
[2021-07-08 15:34] VITALS: BP 138/87
[2021-07-08 19:01] LABS: GLUCOMETER DEV NAME(LOC) 6N.2; GLUCOSE,POINT OF CARE 109 MG/DL (70-110)
[2021-07-08 19:58] VITALS: BP 143/64
[2021-07-08] MEDS: VANCOMYCIN HCL 750 MG in DEXTROSE 5%-WATER 250 ML IV SCH (20:00)
[2021-07-08] MEDS: [UNRECOGNIZED DRUG - OTHER] IV SCH ×10 (22:46)
[2021-07-08] MEDS: PPN IV SCH ×10 (22:46)
[2021-07-08] MEDS: SODIUM PHOS M BASIC D BASIC IV SCH ×10 (22:46)
[2021-07-08] MEDS: SODIUM CHLORIDE IV SCH ×10 (22:46)
[2021-07-09] MEDS: ALBUMIN HUMAN 25%-25GM/100ML 100 ML IV SCH ×2 (00:26→07:49)
[2021-07-09] MEDS: PIPERACILLIN/TAZO 3.375 GM/D5W 50 ML IV SCH ×4 (01:56→19:01)
[2021-07-09 03:51] LABS: GLUCOMETER DEV NAME(LOC) 6N.1; GLUCOSE,POINT OF CARE 105 MG/DL (70-110)
[2021-07-09 05:20] VITALS: BP 102/56
[2021-07-09 06:11] LABS: ANION GAP 9 mmol/L (8-16); CALCIUM, TOTAL 9.4 mg/dL (8.8-10.5); CARBON DIOXIDE 25 mmol/L (22-29); CHLORIDE 103 mmol/L (98-107); CREATININE 0.78 mg/dL (0.60-1.30); GLUCOSE,RANDOM 103 mg/dL (70-110); PHOSPHORUS 2.8 mg/dL (2.5-4.9); POTASSIUM 3.2 mmol/L (3.5-5.1); SODIUM SERUM 137 mmol/L (136-145); UREA NITROGEN, BLOOD 16 mg/dL (7-18)
[2021-07-09 06:17] LABS: GLOMERULAR FILTR. RATE CALC > 60 mL/min (>60)
[2021-07-09 06:21] LABS: GLUCOMETER DEV NAME(LOC) 6N.1; GLUCOSE,POINT OF CARE 102 MG/DL (70-110)
[2021-07-09] MEDS: POTASSIUM CHL 10 MEQ/WATER 50 ML IV PRN ×3 (06:23→08:40)
[2021-07-09] MEDS: VANCOMYCIN HCL 750 MG in DEXTROSE 5%-WATER 250 ML IV SCH ×2 (07:46→21:16)
[2021-07-09] MEDS: PANTOPRAZOLE SODIUM 40 MG/VIAL IVP SCH ×2 (08:01→20:35)
[2021-07-09 08:08] VITALS: BP 132/66
[2021-07-09 19:59] VITALS: BP 133/68
[2021-07-09] MEDS: PPN IV SCH ×10 (22:33)
[2021-07-09] MEDS: SODIUM PHOS M BASIC D BASIC IV SCH ×10 (22:33)
[2021-07-09] MEDS: [UNRECOGNIZED DRUG - OTHER] IV SCH ×10 (22:33)
[2021-07-09] MEDS: SODIUM CHLORIDE IV SCH ×10 (22:33)
[2021-07-10 01:06] LABS: GLUCOMETER DEV NAME(LOC) 6N.1; GLUCOSE,POINT OF CARE 112 MG/DL (70-110)
[2021-07-10 01:06] LABS: GLUCOMETER DEV NAME(LOC) 6N.2; GLUCOSE,POINT OF CARE 109 MG/DL (70-110)
[2021-07-10] MEDS: PIPERACILLIN/TAZO 3.375 GM/D5W 50 ML IV SCH ×4 (01:48→18:34)
[2021-07-10 03:43] VITALS: BP 126/65
[2021-07-10 07:16] LABS: GLUCOMETER DEV NAME(LOC) 6N.1; GLUCOSE,POINT OF CARE 103 MG/DL (70-110)
[2021-07-10 07:16] LABS: GLUCOMETER DEV NAME(LOC) 6N.2; GLUCOSE,POINT OF CARE 106 MG/DL (70-110)
[2021-07-10 07:18] LABS: ANION GAP 9 mmol/L (8-16); CALCIUM, TOTAL 9.7 mg/dL (8.8-10.5); CARBON DIOXIDE 25 mmol/L (22-29); CHLORIDE 103 mmol/L (98-107); CREATININE 0.75 mg/dL (0.60-1.30); GLUCOSE,RANDOM 97 mg/dL (70-110); PHOSPHORUS 2.5 mg/dL (2.5-4.9); POTASSIUM 3.6 mmol/L (3.5-5.1); SODIUM SERUM 137 mmol/L (136-145); UREA NITROGEN, BLOOD 19 mg/dL (7-18)
[2021-07-10 07:19] LABS: GLOMERULAR FILTR. RATE CALC > 60 mL/min (>60)
[2021-07-10] MEDS: VANCOMYCIN HCL 750 MG in DEXTROSE 5%-WATER 250 ML IV SCH ×2 (08:09→21:10)
[2021-07-10] MEDS: PANTOPRAZOLE SODIUM 40 MG/VIAL IVP SCH ×2 (08:09→21:10)
[2021-07-10 08:17] VITALS: BP 124/59
[2021-07-10 15:01] LABS: GLUCOMETER DEV NAME(LOC) 6N.2; GLUCOSE,POINT OF CARE 101 MG/DL (70-110)
[2021-07-10 16:00] VITALS: BP 129/61
[2021-07-10] MEDS ORDERED: SODIUM CHLORIDE 0.9% 250 ML IV ONE ×2 (18:23→18:27)
[2021-07-10 19:11] LABS: GLUCOMETER DEV NAME(LOC) 6N.2; GLUCOSE,POINT OF CARE 103 MG/DL (70-110)
[2021-07-10 19:50] VITALS: BP 118/61
[2021-07-10] MEDS ORDERED: [UNRECOGNIZED DRUG - OTHER] IV SCH ×20 (22:00)
[2021-07-10] MEDS ORDERED: PPN IV SCH ×20 (22:00)
[2021-07-10] MEDS ORDERED: SODIUM ACETATE IV SCH ×20 (22:00)
[2021-07-10] MEDS ORDERED: SODIUM CHLORIDE IV SCH ×20 (22:00)
[2021-07-11] MEDS: PIPERACILLIN/TAZO 3.375 GM/D5W 50 ML IV SCH ×2 (01:07→06:56)
[2021-07-11 04:00] VITALS: BP 140/72
[2021-07-11 07:50] VITALS: BP 130/52
[2021-07-11 08:14] LABS: ANION GAP 10 mmol/L (8-16); CARBON DIOXIDE 25 mmol/L (22-29); CHLORIDE 102 mmol/L (98-107); CREATININE 0.69 mg/dL (0.60-1.30); GLUCOSE,RANDOM 100 mg/dL (70-110); PHOSPHORUS 2.9 mg/dL (2.5-4.9); POTASSIUM 3.5 mmol/L (3.5-5.1); SODIUM SERUM 137 mmol/L (136-145); UREA NITROGEN, BLOOD 20 mg/dL (7-18)
[2021-07-11 08:19] LABS: GLOMERULAR FILTR. RATE CALC > 60 mL/min (>60)
[2021-07-11] MEDS: PANTOPRAZOLE SODIUM 40 MG/VIAL IVP SCH ×2 (08:30→21:51)
[2021-07-11] MEDS: POTASSIUM CHL 10 MEQ/WATER 50 ML IV PRN ×3 (10:09→13:26)
[2021-07-11 11:56] LABS: GLUCOMETER DEV NAME(LOC) 6N.2; GLUCOSE,POINT OF CARE 93 MG/DL (70-110)
[2021-07-11 11:56] LABS: GLUCOMETER DEV NAME(LOC) 6N.2; GLUCOSE,POINT OF CARE 89 MG/DL (70-110)
[2021-07-11] MEDS: INSULIN REGULAR, HUMAN 100 UNITS/ML SQ PRN ×2 (12:07→17:34)
[2021-07-11 16:00] VITALS: BP 125/67
[2021-07-11 20:00] VITALS: BP 141/63
[2021-07-11 20:17] LABS: GLUCOMETER DEV NAME(LOC) 6N.2; GLUCOSE,POINT OF CARE 97 MG/DL (70-110)
[2021-07-11 20:17] LABS: GLUCOMETER DEV NAME(LOC) 6N.2; GLUCOSE,POINT OF CARE 99 MG/DL (70-110)
[2021-07-11] MEDS ORDERED: SODIUM ACETATE IV SCH ×11 (22:00)
[2021-07-11] MEDS ORDERED: [UNRECOGNIZED DRUG - OTHER] IV SCH ×11 (22:00)
[2021-07-11] MEDS ORDERED: PPN IV SCH ×11 (22:00)
[2021-07-11] MEDS ORDERED: SODIUM CHLORIDE IV SCH ×11 (22:00)
[2021-07-12 00:46] LABS: GLUCOMETER DEV NAME(LOC) 6N.2; GLUCOSE,POINT OF CARE 85 MG/DL (70-110)
[2021-07-12 04:27] VITALS: BP 130/65
[2021-07-12 06:41] LABS: GLUCOMETER DEV NAME(LOC) 6N.2; GLUCOSE,POINT OF CARE 89 MG/DL (70-110)
[2021-07-12 07:17] LABS: ANION GAP 8 mmol/L (8-16); CARBON DIOXIDE 26 mmol/L (22-29); CHLORIDE 102 mmol/L (98-107); CREATININE 0.66 mg/dL (0.60-1.30); GLUCOSE,RANDOM 90 mg/dL (70-110); PHOSPHORUS 3.4 mg/dL (2.5-4.9); SODIUM SERUM 136 mmol/L (136-145); UREA NITROGEN, BLOOD 22 mg/dL (7-18); VANCOMYCIN,RANDOM 13.8 mcg/mL (25.0-50.0)
[2021-07-12 07:39] LABS: GLOMERULAR FILTR. RATE CALC > 60 mL/min (>60)
[2021-07-12 08:38] VITALS: BP 141/80
[2021-07-12] MEDS: PANTOPRAZOLE SODIUM 40 MG/VIAL IVP SCH (09:09)
== END 2021-07-12 11:23 | disposition hospice, home (50) | DRG 871 ==
LOC: EMS 07:39 → ICU 10:45 → 6S 07-07 17:30
PROVIDERS: ADMIT Internal Medicine; ATTEND Internal Medicine
PROC: 30233R1 Transfusion of Nonautologous Platelets into Peripheral Vein, Percutaneous Approach (ICD-10-PCS; 2021-07-03)
PROC: 30233K1 Transfusion of Nonautologous Frozen Plasma into Peripheral Vein, Percutaneous Approach (ICD-10-PCS; 2021-07-03)
PROC: 0DJ08ZZ Inspection of Upper Intestinal Tract, Via Natural or Artificial Opening Endoscopic (ICD-10-PCS; 2021-07-03)
PROC: 30233N1 Transfusion of Nonautologous Red Blood Cells into Peripheral Vein, Percutaneous Approach (ICD-10-PCS; principal; 2021-07-03 14:30)
DX: A41.9 Sepsis, unspecified organism (principal); R57.8 Other shock; G93.41 Metabolic encephalopathy; K20.91 Esophagitis, unspecified with bleeding; E87.2 Acidosis; N17.9 Acute kidney failure, unspecified; E87.0 Hyperosmolality and hypernatremia; D61.818 Other pancytopenia; C16.9 Malignant neoplasm of stomach, unspecified; K94.23 Gastrostomy malfunction; Z20.822 Contact with and (suspected) exposure to COVID-19; Z79.02 Long term (current) use of antithrombotics/antiplatelets; I12.9 Hypertensive chronic kidney disease with stage 1 through stage 4 chronic kidney disease, or unspecified chronic kidney disease; E11.22 Type 2 diabetes mellitus with diabetic chronic kidney disease; E78.5 Hyperlipidemia, unspecified; E87.5 Hyperkalemia; D50.0 Iron deficiency anemia secondary to blood loss (chronic); R13.10 Dysphagia, unspecified; N18.9 Chronic kidney disease, unspecified; E87.6 Hypokalemia; E83.39 Other disorders of phosphorus metabolism; K76.9 Liver disease, unspecified; E78.00 Pure hypercholesterolemia, unspecified; F03.90 Unspecified dementia, unspecified severity, without behavioral disturbance, psychotic disturbance, mood disturbance, and anxiety; R91.1 Solitary pulmonary nodule; Z79.899 Other long term (current) drug therapy; Z87.01 Personal history of pneumonia (recurrent); Z86.73 Personal history of transient ischemic attack (TIA), and cerebral infarction without residual deficits; Z86.61 Personal history of infections of the central nervous system; Z88.5 Allergy status to narcotic agent
CPT/HCPCS: 36600; 51702; 70450; 71045; 71250; 72192; 74150; 80048; 80053; 80202; 81001; 81003; 82271; 82550; 82805; 82962; 83036; 83605; 83735; 83880; 84100; 84132; 84145; 84484; 85014; 85018; 85025; 85027; 85610; 85730; 86850; 86900; 86901; 86923; 86927; 87040; 87081; 87804; 93005; 99291; C9113; G0378; J0131; J0456; J0610; J0696; J1940; J2354; J2370; J2543; J2704; J3370; J3475; J3480; J3490; J7030; J7040; J7050; J7060; J7070; J7120; J7131; P9016; P9017; P9035; P9046; Q9967; 36415-L1; 36415-TC; X7700